=== PATIENT | female | born 1970 | race Caucasian/White ===

== ENCOUNTER 2018-01-22 08:17 | Day surgery (SDC) | payer OTHER, SELFPAY ==
--- NOTE | 2018-01-22 06:53 | ROE_ITS ---
Date of service: 01/22/18 Operative Note DATE OF PROCEDURE: 01/22/18 PRE-OP DIAGNOSIS: Dysphagia POST-OP DIAGNOSIS: other (Duodenitis, gastritis and esophagitis) PROCEDURE: EGD With Biopsies SURGEON: Ellen Lorenzo ANESTHESIA: MAC (Kait Saeed, LOPEZ) ESTIMATED BLOOD LOSS: 5 PATHOLOGY: other (Duodenal biopsies, gastric bx and GE junction bx) COMPLICATIONS: None Patient was transported to: same day Patient's condition: stable Indications: Mrs. Arce is a 47 year old female with dysphagia and some intermittent heart burn. She has never had an Upper endoscopy. Risks, benefits and complications have been reviewed. Complications include but are not limited to bleeding, pain, perforation, sore throat, aspiration, and adverse reaction to the medications. Questions were entertained and answered to their satisfaction and they wished to proceed. No guarantees were given or implied. Findings: Severe duodenitis and gastritis. Moderate esophagitis Procedure Description: After Informed consent was obtained the patient was taken to the procedure room and placed in a supine position. Monitors were applied and a time out was done. The patients name, date of , procedure type, allergies to medications and metal in her body were all reviewed. A bite block was placed and she was sedated. Once sedated and comfortable the Gastroscope was inserted and advanced through the oropharynx which was grossly normal into the esophagus. The proximal and mid-esophagus were normal. The distal esophagus showed inflammation consistent with reflux. The scope was advanced into the stomach and through the pylorus into the duodenum. The duodenum showed severe duodenitis in the 1st and second portion. The sphincter of oddi was identified and was normal. Biopsies of the duodenum were taken. The scope was retracted back into the stomach. There was moderate inflammation noted. Biopsies were done of the antrum to rule out H. pylori infection. The scope was retroflexed. The cardia and fundus were normal. The scope was straigthened and retracted into the esophagus. The Z-line was irregular. The GE junction was at 35 cm. Biopsies were done to rule out Granados's. The scope was removed and the patient was woken up and taken back to [facility] in stable condition. Follow up: I will have the patient follow up in 2-3 weeks. I will increase her PPI to BID and add Carafate.
--- NOTE | 2018-01-22 06:56 | PDOC.DSDIS_ITS ---
Discharge Plan Disposition Patient Disposition: HOME Discharge Details Reason For Visit: DYSPHAGIA Attending Provider: Ellen Lorenzo Primary Care Provider: Donita Barrow Home Meds and New Rx's Prescriptions: New sucralfate 1 gram tablet 1 gm PO QID Qty: 56 RF: 0 Continue clobetasol 15 GM ointment 15 gm Topical PRN Qty: 2 RF: 1 citalopram 20 MG tablet 20 mg PO HS RF: 0 lisinopril 10 MG tablet 10 mg PO HS RF: 0 fluticasone 16 GM spray,suspension 2 spry NS BID PRNRF: 0 Changed omeprazole 40 mg capsule,delayed release(DR/EC) 40 mg PO BID Qty: 60 RF: 0 Discharge Instructions Instructions: Upper Endoscopy (DC), Duodenitis (DC), Gastritis (DC), Diet for Stomach Ulcers and Gastritis (GEN), Esophagitis (DC) Additional Instructions: Findings: Inflammation of the small bowel, stomach and esophagus Follow up: 2-3 weeks New Medications: Increase Omeprazole to 2 x a day carafate 1gm, take 1 tab 30 minutes before meals and before bedtime Please call if you develop: fevers >101.5 Nausea or Vomiting Abdominal pain that is not transient DAY SURGERY UNIT POST COLONOSCOPY INSTRUCTIONS 1. Because there will be medication in your system for the next 24 hours, you may feel a little sleepy. Your coordination will be affected. Therefore: a. Do not drive or operate dangerous equipment for 24 hours. b. Do not drink alcohol beverages for 24 hours (not even beer). c. Plan to go home and rest for the day. 2. Generally there are no restrictions on your activity after a day or so has gone by, but you may feel a bit fatigued for a few days. 3 After you arrive home you may have a light meal and return to a normal diet as you can tolerate it without feeling sick to your stomach. 4. After surgery, you may feel pain or discomfort. This should be only transient , but if it persists please contact your doctor. 5. If there are any questions regarding the findings of your procedure, please feel free to contact your doctor. 6. If you are unable to contact your doctor with a problem, contact the hospital at [phone]. 7. Continue all your regular medications unless directed otherwise. I understand the above instructions and have no questions. Signature of Patient or Responsible Adult Escort Date/Time Name of Responsible Adult Escort Signature of Nurse Date/Time Activity:: Activity as Tolerated Diet:: low acid Discharge Orders Discharge Orders: Discharge Order (Routine); Ordered 01/22/18 Ordered By: Ellen Lorenzo DS: Diagnosis Discharge Diagnosis (1) Esophagitis determined by biopsy: Status: Acute (2) Gastritis and duodenitis: Status: Acute
[2018-01-22 08:32] VITALS: BP 158/71; PULSE 58; RESP 16; TEMP 35.7; O2SAT 97
[2018-01-22] MEDS: Lactated Ringers 1,000 ML 80 ML IV (09:00)
--- NOTE | 2018-01-22 10:05 | STOM_PTH ---
PATIENT: Loretta Arce LOC: [facility] U#:[id number] AGE/SX: 47/F ROOM: RE01/22/[address]: Ellen Lorenzo MD : 1970 BED: DIS: 01/22/2018 SPEC #: [id number] RECD: 01/22/18 12:51 STATUS: NITIN RETanja #: [id number] ROXIE: 01/22/18 10:[address]: Ellen Lorenzo DEPT: Surgical Specimen RECD BY: Caity David ENTERED: 01/22/18 12:52 SP TYPE: STOMACH OTHR DR: Donita Barrow APRN Tissues: 1 - BIOPSY BOWEL 2 - STOMACH BIOPSY 3 - ESOPHAGUS BIOPSY Procedures: GROSS AND MICRO LEVEL 4 IMMUNOPEROXIDASE STAIN Comments: [id number]
[2018-01-22 10:50] VITALS: BP 146/75; PULSE 59; RESP 18; TEMP 36.6; O2SAT 96
== END 2018-01-22 11:32 | disposition home or self-care (01) ==
LOC: SUR 08:17
PROVIDERS: PCP Nurse Practitioner Family; Visit Provider Surgery
PROC: 0DJ68ZZ Inspection of Stomach, Via Natural or Artificial Opening Endoscopic (ICD-10-PCS; CPT 43235; principal; 2018-01-22 10:15)
DX: R13.10 Dysphagia, unspecified (principal); K29.80 Duodenitis without bleeding; K31.89 Other diseases of stomach and duodenum; K29.60 Other gastritis without bleeding; K20.9 Esophagitis, unspecified
CPT/HCPCS: 43239; 88305; 88361

== ENCOUNTER 2019-10-20 09:01 | Outpatient (CLI) | payer OTHER, SELFPAY ==
--- NOTE | 2019-10-20 15:15 | DI.MAMMO_ITS ---
EXAM: MG MAMMO SCREENING CLINICAL HISTORY: screening, Z12.39 TECHNIQUE: Bilateral full field digital CC and MLO mammographic images were obtained with 3D tomosyn thesis and utilizing computer aided detection (CAD). COMPARISON: Available for comparison. FINDINGS: Masses/Architectural Distortion: None seen. Microcalcifications: No suspicious pleomorphic-type are seen. Skin Thickening/Nipple Retraction: None. IMPRESSION: 1. No significant interval change with no specific features of malignancy noted. 2. Unless there is more urgent need, screening mammography is recommended, as per [employer] guidelines. BI-RADS Category 1 - Negative Breast Density - Category B - Scattered areas of fibroglandular density A negative radiographic report should not delay biopsy if a dominant or clinically suspicious mass is present. Up to ten percent of cancers are not identified on mammography. A negative report may reinforce clinical impression. Adenosis and dense breasts may obscure an underlying neoplasm. False positive reports average 6 to 10%. Patient will receive a letter notifying them of these results.
== END 2019-10-20 09:21 ==
PROVIDERS: PCP Nurse Practitioner; Visit Provider Nurse Practitioner
DX: Z12.31 Encounter for screening mammogram for malignant neoplasm of breast (principal)
CPT/HCPCS: 77063; 77067

== ENCOUNTER → 2021-12-30 00:35 | Outpatient (CLI) | payer OTHER, SELFPAY ==
--- OUTSIDE RECORDS SUMMARY | 2021-12-30 00:50 | XMS_ITS | Encounter Summary ---
:1970 Author Organization [facility] Address [address] [place] [address] Care Team Providers Name Role Phone Unavailable Primary Care Provider Unavailable Encounter Details Date Type Department Care Team Description 01/29/2006 Results Only [facility] - Dianna Briones od, CHECK CLERK [place] [id number] [place] [phone] (Wo rk) Social History Tobacco Use Types Packs/Day Years Used Date Never Assessed Sex Assigned at Date Recorded Not on file documented as of this encounter Plan of Treatment Not on filedocumented as of this encounter Procedures Procedure Name Priority Date/Time Associated Diagnosis Comme nts CYTOPATHOLOGY Routine 01/29/2006 0:00 EDT Results for this procedure are i n the results section . documented in this encounter Results CYTOPATHOLOGY (01/29/2006 0:00 EDT) Pathology Report: CYTOPATHOLOGY REPORT [facility] Reports generated via electronic interface contain constantine ginal data; however they are lacking the format of the original re port. Caution should be taken when reading/interpreting unfo rmatted reports. Name: ? LORETTA BARAHONA ? Accession #: ? [id number] : ? 1970 (Age: 35) ??F ?Collect Date: ? 10/0 12/2005 Location: ? [facility] ? Receive Date : ? 01/30/2006 Provider: ?DIANNA PENDLETON CHECK CLERK Copy to: ? Specimen/Source: ? ThinPrep Pap Test, Cervix/Endocervix, processed on [employer] ThinPrep Imaging System, with manual evaluation Last Menstrual Period: ? 01/15/06 Other: ? HPVA - HPV testing requested if ASC-US on the current ThinPrep Pap test. ? SPECIMEN ADEQUACY ? Satisfactory for Evaluation - transformation zone component present GENERAL CATEGORIZATION ? Negative for Intraepithelial Lesion or Malignan cy ? Document reviewed and electronically signed by: ? Altagracia Isabel, SCT(ASCP) ? Report Date: ??02/01/2006 15:22 End of Report Specimen Performing Organization Address City/State/ZIP Code Phon e Number [facility] [address] [place] [address] SERVICES [facility] [address] [place] [address] documented in this encounter Visit Diagnoses Not on filedocumented in this encounter
--- OUTSIDE RECORDS SUMMARY | 2021-12-30 00:50 | XMS_ITS | Encounter Summary ---
:1970 Author Organization [facility] Address [address] [place] [address] Care Team Providers Name Role Phone Unavailable Primary Care Provider Unavailable Encounter Details Date Type Department Care Team Description 10/01/2008 Orders Only [facility] Eliceo Love, INSURANCE SALES ASSOCIATE Laboratory Services - [address] [place], [place] [address] [facility] [address] [place] [address] [phone] Social History Tobacco Use Types Packs/Day Years Used Date Never Assessed Sex Assigned at Date Recorded Not on file documented as of this encounter Plan of Treatment Not on filedocumented as of this encounter Procedures Procedure Name Priority Date/Time Associated Diagnosis Comme [facility] CYTOPATHOLOGY Routine 10/01/2008 0:00 EDT Results for this procedure are i n the results section . documented in this encounter Results CYTOPATHOLOGY (10/01/2008 0:00 EDT) Pathology Report: CYTOPATHOLOGY REPORT ? [facility] Reports generated via electr onic interface contain original data; ? however they are lacking the format of the original report. ? Caution should be taken when reading/interpreting unformatted reports. ? Name: ? LORETTA BARAHONA ? Accession #: ? [id number] ? : ? 1970 (Age: 38) ??F ?Collect Date: ? 10/01/2008 ? Location: ? [facility] ? Receive Date: ? 10/02/2008 ? Provider: ?NEETA GALANG OOD INSURANCE SALES ASSOCIATE ? Copy to: ? Specimen/Source: ? Pap Test, Cervix/Endocervix, ThinPrep Imaging System ? with manual evaluation ? Last Menstrual Period: ? 6/6/09 ? Other: ? HPVA - HPV testing requested if ASC-US on the current ThinPrep Pap test. ? SPECIMEN ADEQUACY ? Satisfactory for Eval uation ? - transformation zone compon ent present ? GENERAL CATEGORIZATION ? Negative for Intraepi thelial Lesion or Malignancy ? INTERPRETATION ? Shift in eloy presen t suggestive of bacterial vaginosis. ? Document reviewed and electr onically signed by: ? Mohsen Rangel, CT( CP) ? Report Date: ??06/17/ 2009 14:46 ? End of Report ? Specimen Performing Organization Address City/State/ZIP Code Phon e Number [facility] [address] [place] [address] SERVICES [facility] [address] [place] [address] documented in this encounter Visit Diagnoses Not on filedocumented in this encounter
--- OUTSIDE RECORDS SUMMARY | 2021-12-30 00:50 | XMS_ITS | Encounter Summary ---
:1970 Author Organization [facility] Address [address] [place] [address] Care Team Providers Name Role Phone Unknown, Provider Primary Care Provider Encounter Details Date Type Department Care Team Description 01/22/2018 Hospital Encounter [facility]- Shayy Unknown, Provider, [facility] [address] [facility] [phone] [place] [address] (Work) [phone] Social History Tobacco Use Types Packs/Day Years Used Date Never Assessed Sex Assigned at Date Recorded Not on file documented as of this encounter Discharge Disposition Disposition Code Departure Means Destination Home or Self Shelter documented in this encounter Plan of Treatment Not on filedocumented as of this encounter Visit Diagnoses Not on filedocumented in this encounter Care Teams Fire Control Officer Relationship Specialty Start Date End Date Unknown, Provider, PCP - General 03/02/15 01/22/18 documented as of this encounter
--- OUTSIDE RECORDS SUMMARY | 2021-12-30 00:50 | XMS_ITS | Encounter Summary ---
:1970 Author Organization [facility] Address [address] [place] [address] Care Team Providers Name Role Phone Unavailable Primary Care Provider Unavailable Encounter Details Date Type Department Care Team Description 08/24/2000 Results Only [facility] - Dianna Briones od, MAINFRAME ANALYST [place] [id number] [address] [place] [phone] (Wo rk) Social History Tobacco Use Types Packs/Day Years Used Date Never Assessed Sex Assigned at Date Recorded Not on file documented as of this encounter Plan of Treatment Not on filedocumented as of this encounter Procedures Procedure Name Priority Date/Time Associated Diagnosis Comme nts CYTOPATHOLOGY Routine 08/24/2000 0:00 EDT Results for this procedure are i n the results section . documented in this encounter Results CYTOPATHOLOGY (08/24/2000 0:00 EDT) Pathology Report: CYTOPATHOLOGY REPORT [facility] Reports generated via electronic interface contain constantine ginal data; however they are lacking the format of the original re port. Caution should be taken when reading/interpreting unfo rmatted reports. Name: ? LORETTA BARAHONA ? Accession #: ? [id number] : ? 1970 (Age: 30) ??F ?Collect Date: ? 0507/2000 Location: ? [facility] ? Receive Date : ? 08/27/2000 Provider: ?DIANNA PENDLETON MAINFRAME ANALYST Copy to: ? Specimen/Source: ?ThinPrep Pap Test, Cervix/ Endocervix Last Menstrual Period: ? Hormonal/Contraceptive Status: ? Depo-Provera Previous Gynecologic Pathology: ? ASC-US: ? LSIL 1994, 1995 & 1996 Benign cellular changes: & Treatment History: ? Colposcopy: 1996 Other: ? Additional clinical information: Pap wnl. ? SPECIMEN ADEQUACY ? Satisfactory for evaluation. GENERAL CATEGORIZATION ? Benign Cellular Changes DESCRIPTIVE DIAGNOSIS ? Predominance of coccobacilli present consistent with shift in vaginal eloy. ? Document reviewed and electronically signed by: ? Sarita Wells, ??SCT(ASCP) ? Report Date: ??08/28/2000 12:29 End of Report Specimen Performing Organization Address City/State/ZIP Code Phon e Number [facility] [address] [place] [address] SERVICES [facility] [address] [place] [address] documented in this encounter Visit Diagnoses Not on filedocumented in this encounter
--- OUTSIDE RECORDS SUMMARY | 2021-12-30 00:50 | XMS_ITS | Encounter Summary ---
:[address] [facility] Address [address] [place] [address] Care Team Providers Name Role Phone Unknown, Provider Primary Care Provider Encounter Details Date Type Department Care Team Description 03/13/2017 Results Only [facility]- Dianna Mae, [facility] [phone] [facility] [place] [address] (Wo rk) Social History Tobacco Use Types Packs/Day Years Used Date Never Assessed Sex Assigned at Date Recorded Not on file documented as of this encounter Plan of Treatment Not on filedocumented as of this encounter Procedures Procedure Name Priority Date/Time Associated Diagnosis Comme nts PAP TEST- RESULT Routine 03/13/2017 0:00 EST Resu lts for this ONLY procedure are i n the results section. documented in this encounter Results PAP TEST- RESULT ONLY (03/13/2017 0:00 EST) Pathology Report: CYTOPATHOLOGY REPORT [facility] Reports generated via electronic interface contain constantine ginal data; SERVICES however they are lacking the format of the original re port. Caution should be taken when reading/interpreting unfo rmatted reports. Name: ? LORETTA BARAHONA ? Accession #: ? [id number] ? : ? 1970 (Age: 46 ) ??F ?Collect Da te: ? 03/13/2017 ? Location: ? [facility] ? Receive Date: ? 017 ? Provider: DIANNA PENDLETON ELECTRICAL ASSEMBLY TECHNICIAN Copy to: KERMIT VALENZUELA ELECTRICAL ASSEMBLY TECHNICIAN ? Final Report SPECIMEN ADEQUACY ? Satisfactory for Evaluation - transformation zone component present GENERAL CATEGORIZATION ? Negative for Intraepithelial Lesion or Malignan cy INTERPRETATION ? Shift in eloy present suggestive of bacterial vaginosis. Hormonal/Contraceptive status: Intrauterine device Specimen/Source: ??Pap Test, Cervix, ThinPrep Imaging System with manual evaluation Document reviewed and electronically signed by: ? Rosalind Salomon, CT(ASCP) ? Report ??Date: 03/27/2017 08:58 HPV with Pap Test ? Date Ordered: ? 03/27/2017 ? Status: ?? Signed Out ?Date Complete: ? 03/28/2017 ? By: ??Sy stem Interface ? Date Reported: ? 03/28/2017 ? Interpretation RESULT: Negative for HPV. No E6 or E7 mRNA is detected from HPV types 16,18,31,3 3,35, 39,45,51,52,56,58,59,66, and 68 by internet sales consultant media french amplification. Comments Document reviewed and electronically signed by: ? System Interface ? Report date: 03/28/2017 By the signature above, the attending physician certif ies that he/she has personally conducted a gross and/or microscopic examin ation of the described specimens and rendered or confirmed the above diagnosi s. End of Report Specimen Performing Organization Address City/State/ZIP Code Phon e Number [facility] [address] [place] [id number] SERVICES documented in this encounter Visit Diagnoses Not on filedocumented in this encounter Care Teams Commissioner Of Internal Revenue Relationship Specialty Start Date End Date Unknown, Provider, PCP - General 03/02/15 01/22/18 documented as of this encounter
--- OUTSIDE RECORDS SUMMARY | 2021-12-30 00:50 | XMS_ITS | Encounter Summary ---
:[address] [facility] Address [address] [place] [address] Care Team Providers Name Role Phone Unavailable Primary Care Provider Unavailable Encounter Details Date Type Department Care Team Description 02/18/2007 Results Only [facility] - Dianna Briones od, ROPE CLEANER [place] [address] [place] [phone] (Wo rk) Social History Tobacco Use Types Packs/Day Years Used Date Never Assessed Sex Assigned at Date Recorded Not on file documented as of this encounter Plan of Treatment Not on filedocumented as of this encounter Procedures Procedure Name Priority Date/Time Associated Diagnosis Comme nts CYTOPATHOLOGY Routine 02/18/2007 0:00 EDT Results for this procedure are i n the results section . documented in this encounter Results CYTOPATHOLOGY (02/18/2007 0:00 EDT) Pathology Report: CYTOPATHOLOGY REPORT [facility] Reports generated via electronic interface contain constantine ginal data; however they are lacking the format of the original re port. Caution should be taken when reading/interpreting unfo rmatted reports. Name: ? LORETTA BARAHONA ? Accession #: ? [id number] : ? 1970 (Age: 36) ??F ?Collect Date: ? 01/22 Location: ? [facility] ? Receive Date : ? 02/19/2007 Provider: ?DIANNA PENDLETON ROPE CLEANER Copy to: ? Specimen/Source: ? ThinPrep Pap Test, Cervix/Endocervix, processed on [employer] ThinPrep Imaging System, with manual evaluation Last Menstrual Period: ? 01/26/07 Other: ? HPVA - HPV testing requested if ASC-US on the current ThinPrep Pap test. ? SPECIMEN ADEQUACY ? Satisfactory for Evaluation - transformation zone component present GENERAL CATEGORIZATION ? Negative for Intraepithelial Lesion or Malignan cy INTERPRETATION ? Shift in eloy present suggestive of bacterial vaginosis. ? Document reviewed and electronically signed by: ? Altagracia Isabel, SCT(ASCP) ? Report Date: ??02/22/2007 16:17 End of Report Specimen Performing Organization Address City/State/ZIP Code Phon e Number [facility] [address] [place] [address] SERVICES [facility] [address] [place] [address] documented in this encounter Visit Diagnoses Not on filedocumented in this encounter
--- OUTSIDE RECORDS SUMMARY | 2021-12-30 00:50 | XMS_ITS | Encounter Summary ---
:1970 Author Organization [facility] Address [address] [place] [address] Care Team Providers Name Role Phone Unavailable Primary Care Provider Unavailable Encounter Details Date Type Department Care Team Description 03/25/2013 Results Only [facility] Eliceo Love, [facility] Laboratory Services - [address] [place], [place] [address] [facility] [address] [place] [address] [phone] Social History Tobacco Use Types Packs/Day Years Used Date Never Assessed Sex Assigned at Date Recorded Not on file documented as of this encounter Plan of Treatment Not on filedocumented as of this encounter Procedures Procedure Name Priority Date/Time Associated Diagnosis Comme nts PAP TEST- RESULT Routine 03/25/2013 0:00 EST Resu lts for this ONLY procedure are i n the results section. documented in this encounter Results PAP TEST- RESULT ONLY (03/25/2013 0:00 EST) Pathology Report: CYTOPATHOLOGY REPORT [facility] Reports generated via electronic interface contain constantine ginal data; however they are lacking the format of the original re port. Caution should be taken when reading/interpreting unfo rmatted reports. Name: ? LORETTA BARAHONA ? Accession #: ? [id number] ? : ? 1970 (Age: 42) ??F ?Collect Da te: ? 03/25/2013 ? Location: ? [facility] ? Receive Date: ? 013 ? Provider: NEETA LOVE TRACK SWEEPER Copy to: VIVIANE SIBLEY PILOT PLANT SUPERVISOR ? Final Report SPECIMEN ADEQUACY ? Satisfactory for Evaluation - transformation zone component present GENERAL CATEGORIZATION ? Negative for Intraepithelial Lesion or Malignan cy INTERPRETATION ? Shift in eloy present suggestive of bacterial vaginosis. Hormonal/Contraceptive status: Yes: MIRENA Specimen/Source: ??Pap Test, Cervix/Endocervix, ThinPr ep Imaging System with manual evaluation Document reviewed and electronically signed by: ? QUAN Maciel(ASCP) ? Report ??Date: 03/28/2013 13:11 HPV with Pap Test ? Date Ordered: ? 03/28/2013 ? Status: ?? Signed Out ?Date Complete: ? 04/01/2013 ? By: ??S ystem Interface ? Date Reported: ? 04/01/2013 ? Interpretation RESULT: Negative for HPV. No E6 or E7 mRNA is detected from HPV types 16,18,31,3 3,35, 39,45,51,52,56,58,59,66, and 68 by fruit and vegetable factory worker media french amplification. Comments Document reviewed and electronically signed by: ? System Interface ? Report date: 04/01/2013 By the signature above, the attending physician certif ies that he/she has personally conducted a gross and/or microscopic examin ation of the described specimens and rendered or confirmed the above diagnosi s. End of Report Specimen Performing Organization Address City/State/ZIP Code Phon e Number [facility] [address] [place] [phone] [place] [address] [facility] [address] [place] [address] documented in this encounter Visit Diagnoses Not on filedocumented in this encounter
--- OUTSIDE RECORDS SUMMARY | 2021-12-30 00:50 | XMS_ITS | Encounter Summary ---
:[address] [facility] Address [address] [place] [address] Care Team Providers Name Role Phone Unknown, Provider Primary Care Provider Encounter Details Date Type Department Care Team Description 01/22/2018 Results Only [facility]- Luis Manuel Mcdonald, [address] [place] [address] [address] [place], [place] [phone] (Wo rk) Social History Tobacco Use Types Packs/Day Years Used Date Never Assessed Sex Assigned at Date Recorded Not on file documented as of this encounter Plan of Treatment Not on filedocumented as of this encounter Procedures Procedure Name Priority Date/Time Associated Diagnosis Comme nts SURGICAL PATHOLOGY Routine 01/22/2018 16:40 Resul ts for this EDT procedure are i n the results section. documented in this encounter Results SURGICAL PATHOLOGY (01/22/2018 16:40 EDT) Pathology Report: SURGICAL PATHOLOGY REPORT [facility] Reports generated via electronic interface contain constantine ginal data; SERVICES however they are lacking the format of the original re port. Caution should be taken when reading/interpreting unfo rmatted reports. Name: ? LORETTA BARAHONA ? Accession #: ? [id number] ? : ? 1970 (Age: 47 ) ??F ?Collect Date: ? 01/22/2018 ? Location: ? [facility] ? Receive Date: ? 01/23/20 18 ? Provider: LUIS MANUEL SUÁREZ MD Copy to: KERMIT VALENZUELA SCISSORS SHARPENER ? Addendum ? Date Ordered: ? 01/28/2018 ? Status: Sig michelle Out ? Date Complete: ? 01/28/2018 ? By: Yaneli Whitehead ? Date Reported: ? 01/28/2018 ? Addendum Comment This addendum is being issued to report the results of an Helicobacter (H.) pylori stain performed on specimen B (see results belo w). ??Immunoperoxidase staining was performed on this case to further evaluat e for H. pylori. ? ANTIBODY(CLONE)(BLOCK):RESULT H. pylori (Rabbit Monoclonal (SP48), [place]) (B1): ?? Negative (Dr. Ignacio)/mms ? NOTE: ??One or more of the reagents used in imm unoperoxidase testing in this case may not have been cleared or approved by the U.S. Food and Drug Administration (FDA). ??The FDA has determined that such clearance or approval is not necessary. ??These tests are used for clinical purposes. ??They should not be regarded as investigational or for research. ??These r eagents' performance characteristics have been de termined by the [facility] and/or by the referring jenn minor. ??The positive and negative controls worked appropriately. ??If immunope roxidase staining has been performed on alcohol fixed cytology specimens, which has not been fully validated , the assays should be interpreted with caution and correlated with clinical data. ??This laboratory is certified under the Clinical Laboratory Improvement Amendments of 1988 (CLIA-88) as qualified to perform high complexity clinical labor atory testing. ?? Document reviewed and electronically signed by: ? HEATHER IGNACIO MD ? Report date: 01/28/2018 By the signature above, the attending physician certif ies that he/she has personally conducted a gross and/or microscopic examin ation of the described specimens and rendered or confirmed the above diagnosi s. Final Report Final Pathologic Diagnosis: A. DUODENUM, BIOPSY: - Peptic duodenitis. B. STOMACH, ANTRUM, BIOPSY: - Reactive (chemical) gastropathy with focal acute inf lammation. - No evidence of Helicobacter pylori-like organi sms on routine H&E stain. See comment. C. ESOPHAGUS, GASTROESOPHAGEAL JUNCTION, BIOPSY: - Squamocolumnar junctional mucosa with chronic inflam mation and reactive change. - Increased intraepithelial eosinophils (up to approximately 35 per high-power field). See comment. - No intestinal metaplasia or dysplasia. ?? Comment: Specimen B: ??Given the foca l acute inflammation in the stomach biopsy and peptic duodenitis in specimen A, an immunostain for Helicobacter pylori was ordered and the results will be issued in a supplemental report. Specimen C: ??The presence of increased intraepithelia l eosinophils in the gastroesophageal biopsy may simply represent changes a ssociated with reflux esophagitis in the appropriate clinical and endoscopic setting. However, eosinophilic esophagitis is another diagnostic conside ration based on the microscopic findings alone. If there is remaining clinical uncertainty between these entities, additional separately submitted biopsi es of the proximal and distal esophagus may be considered, only as clinically indicated. (Dr. Ignacio)/jleslie ?? Dr. Ignacio 01/24/2018 7:48 PM ? Gross Description: A. ?Received in formalin labelled with proper p atient identification (initials H, K) and 1. Duodenum biopsy is a higgins-pink tissue (0.4 x 0.3 x 0.2 cm). Submitted in toto in A1. B. ?Received in formalin labelled with proper p atient identification (initials H, K) and 2. Marivel arden antrum bxs are four higgins-pink tissues (0.2 x 0.2 x 0.1 cm to 0.7 x 0.2 x 0.1 cm). Submitted in toto in B1. C. ?Received in formalin labelled with proper p atient identification (initials H, K) and 3. GE j unction are three higgins-pink tissues (0.2 x 0.1 x 0.1 cm to 0.4 x 0.3 x 0.2 cm). Submitted in toto in C1. KHOA Levine ([facility]) 01/22/2018 5:51 PM ? Clinical History: Dysphagia; B. ??R/O H. pylori; C. ??R/O Granados's ? Specimens Received: A: Small Intestine biopsy B: Stomach, biopsy C: Esophagus, biopsy Document reviewed and electronically signed by: ? HEATHER IGNACIO MD ? Report ??Date: 01/24/2018 19:49 By the signature above, the attending physician certif ies that he/she has personally conducted a gross and/or microscopic examin ation of the described specimens and rendered or confirmed the above diagnosi s. End of Report Specimen Performing Organization Address City/State/ZIP Code Phon e Number [facility] [address] [place] [id number] SERVICES documented in this encounter Visit Diagnoses Not on filedocumented in this encounter Care Teams Gear Setter Relationship Specialty Start Date End Date Unknown, Provider, PCP - General 03/02/15 01/22/18 documented as of this encounter
--- OUTSIDE RECORDS SUMMARY | 2021-12-30 00:50 | XMS_ITS | Encounter Summary ---
:1970 Author Organization [facility] Address [address] [place] [address] Care Team Providers Name Role Phone Unavailable Primary Care Provider Unavailable Encounter Details Date Type Department Care Team Description 09/07/2003 Results Only [facility] - Celso Edge CNM conversion [address] [place] [address] [place], [place] [id number] [phone] Social History Tobacco Use Types Packs/Day Years Used Date Never Assessed Sex Assigned at Date Recorded Not on file documented as of this encounter Plan of Treatment Not on filedocumented as of this encounter Procedures Procedure Name Priority Date/Time Associated Diagnosis Comme nts CYTOPATHOLOGY Routine 09/07/2003 0:00 EDT Results for this procedure are i n the results section . documented in this encounter Results CYTOPATHOLOGY (09/07/2003 0:00 EDT) Pathology Report: CYTOPATHOLOGY REPORT [facility] Reports generated via electronic interface contain constantine ginal data; however they are lacking the format of the original re port. Caution should be taken when reading/interpreting unfo rmatted reports. Name: ? LORETTA BARAHONA ? Accession #: ? [id number] : ? 1970 (Age: 33) ??F ?Collect Date: ? 08/21 Location: ? [facility] ? Receive Date : ? 09/09/2003 Provider: ?CELSO STOLL CNM Copy to: ? Specimen/Source: ?ThinPrep Pap Test, Cervix/ Endocervix Last Menstrual Period: ? 11/01/2002 Menstrual/ Status: ? Post Other: ? HPVA - HPV testing requested if ASC-US on the current ThinPrep Pap test. ? SPECIMEN ADEQUACY ? Satisfactory for Evaluation - transformation zone component present GENERAL CATEGORIZATION ? Negative for Intraepithelial Lesion or Malignan cy ? Document reviewed and electronically signed by: ? QUAN Pena(ASCP) ? Report Date: ??09/14/2003 15:49 End of Report Specimen Performing Organization Address City/State/ZIP Code Phon e Number [facility] [address] [place] [address] SERVICES [facility] [address] [place] [address] documented in this encounter Visit Diagnoses Not on filedocumented in this encounter
--- OUTSIDE RECORDS SUMMARY | 2021-12-30 00:50 | XMS_ITS | Encounter Summary ---
:[address] [facility] Address [address] [place] [address] Care Team Providers Name Role Phone Unavailable Primary Care Provider Unavailable Encounter Details Date Type Department Care Team Description 09/02/1999 Results Only [facility] - Dianna Briones od, OIL SALES AND SERVICE REP [facility] [address] [place] [phone] (Wo rk) Social History Tobacco Use Types Packs/Day Years Used Date Never Assessed Sex Assigned at Date Recorded Not on file documented as of this encounter Plan of Treatment Not on filedocumented as of this encounter Procedures Procedure Name Priority Date/Time Associated Diagnosis Comme nts CYTOPATHOLOGY Routine 09/02/1999 7:38 EDT Results for this procedure are i n the results section . documented in this encounter Results CYTOPATHOLOGY (09/02/1999 7:38 EDT) Pathology Report: CYTOPATHOLOGY REPORT [facility] Reports generated via electronic interface contain constantine ginal data; however they are lacking the format of the original re port. Caution should be taken when reading/interpreting unfo rmatted reports. Name: ? LORETTA BARAHONA ? Accession #: ? [id number] : ? 1970 (Age: 29) ??F ?Collect Date: ? 08/21 Location: ?Receive Date: ? 09/02/1999 Provider: ?DIANNA PENDLETON OIL SALES AND SERVICE REP Copy to: ?DIANNA PENDLETON OIL SALES AND SERVICE REP ? Specimen/Source: ?Director Data Processing ThinPrep Last Menstrual Period: ? GYNECOLOGIC ??CYTOPATHOLOG Y ??REPORT Name: LORETTA STORY ? [facility] : 1970 ?? 29Y F ?Client ID: [id number] SS#: ? Clinician: KEERTHI MARTINEZP, DIANNA ?? Location: [facility] ??Copy to: ?? Specimen: ?Director Data Processing ThinPrep ? Source: Cervix/Endocervix ?Collected: 08/31/99 ? Received: 09/02/1999 ?LMP: 1997 ? Hormone Therapy: No ? : No ? Radiation Therapy: No ?? Post : No ?Chemotherapy: No ?IUD: No ? Prev Abnormal Pap: Yes ?? Clinical Hx: ASCUS ? LGSIL 1994, 1995, and 1996. Colpo 1996. WNL ? Benign Cellular Change s. Depo Provera ?(Blank florentino indicate information not provided on requisition) SPECIMEN ADEQUACY: ? Satisfactory But Limited By ? Absence Of A Transformation Zone Component ?? GENERAL CATEGORIZATION: ? BENIGN CELLULAR CHANGES ?? DESCRIPTIVE DIAGNOSIS: ? Predominance Of Coccobacilli Present Consistent With A Shift In ? Vaginal Jessica ? Reviewed And Electronically Signed By: ? Kait kirby, CT(ASCP) ? Chanda Hogan, CT(ASCP) ? Report Date : ?? 09/07/1999 [facility] Archived Tests - Final Diagnosis Text Field: Clinical History : Depo-Prov era ;ASCUS ? LGSIL 1994, 1995, and 1996. Colpo 1996. WNL Benign Cellular Changes. ? Document reviewed and electronically signed by: ? Conversion ? Report Date: ??09/07/1999 00:00 End of Report Specimen Performing Organization Address City/State/ZIP Code Phon e Number [facility] [address] [place] [address] SERVICES [facility] [address] [place] [address] documented in this encounter Visit Diagnoses Not on filedocumented in this encounter
--- OUTSIDE RECORDS SUMMARY | 2021-12-30 00:50 | XMS_ITS | Encounter Summary ---
:1970 Author Organization [facility] Address [address] [place] [address] Care Team Providers Name Role Phone Unavailable Primary Care Provider Unavailable Encounter Details Date Type Department Care Team Description 08/27/2001 Results Only [facility] - Dianna Briones od, TECHNICAL PROGRAM MANAGER [facility] [address] [place] [phone] (Wo rk) Social History Tobacco Use Types Packs/Day Years Used Date Never Assessed Sex Assigned at Date Recorded Not on file documented as of this encounter Plan of Treatment Not on filedocumented as of this encounter Procedures Procedure Name Priority Date/Time Associated Diagnosis Comme nts CYTOPATHOLOGY Routine 08/27/2001 0:00 EDT Results for this procedure are i n the results section . documented in this encounter Results CYTOPATHOLOGY (08/27/2001 0:00 EDT) Pathology Report: CYTOPATHOLOGY REPORT [facility] Reports generated via electronic interface contain constantine ginal data; however they are lacking the format of the original re port. Caution should be taken when reading/interpreting unfo rmatted reports. Name: ? LORETTA BARAHONA ? Accession #: ? [id number] : ? 1970 (Age: 31) ??F ?Collect Date: ? 0510/2001 Location: ? [facility] ? Receive Date : ? 08/28/2001 Provider: ?DIANNA PENDLETON TECHNICAL PROGRAM MANAGER Copy to: ? Specimen/Source: ?ThinPrep Pap Test, Cervix/ Endocervix Last Menstrual Period: ? Previous Gynecologic Pathology: ? ASC-US: ? LSIL 1994, 1995, 1996 Benign cellular changes: , , 08/21 Treatment History: ? Colposcopy: 1996, Pap of WNL ? SPECIMEN ADEQUACY ? Satisfactory for Evaluation - transformation zone component present GENERAL CATEGORIZATION ? Negative for Intraepithelial Lesion or Malignan cy INTERPRETATION ? Shift in eloy present suggestive of bacterial vaginosis. ? Document reviewed and electronically signed by: ? QUAN Crump(ASCP) ? Report Date: ??08/30/2001 13:46 End of Report Specimen Performing Organization Address City/State/ZIP Code Phon e Number [facility] [address] [place] [address] SERVICES [facility] [address] [place] [address] documented in this encounter Visit Diagnoses Not on filedocumented in this encounter
--- NOTE | 2021-12-30 08:05 | DI.MAMMO_ITS ---
Exam(s) MAMMO SCREENING EXAM: MAMMO SCREENING CLINICAL HISTORY: screening,z12.39 TECHNIQUE: Bilateral full field digital CC and MLO mammographic images were obtained with 3D tomosyn thesis and utilizing computer aided detection (CAD). COMPARISON: Available for comparison. FINDINGS: Masses/Architectural Distortion: None seen. Microcalcifications: No suspicious pleomorphic-type are seen. Skin Thickening/Nipple Retraction: None. IMPRESSION: 1. No significant interval change with no specific features of malignancy noted. 2. Unless there is more urgent need, screening mammography is recommended, as per [place] [employer] guidelines. BI-RADS Category 1 - Negative Breast Density - Category B - Scattered areas of fibroglandular density Breast density category C or D implies that the patient has dense breast tissue. Dense breast tissue is very common and is not abnormal but dense breast tissue can make it harder to find cancer on a ma mmogram. Also, dense breast tissue may increase their breast cancer risk. This information about the result of the mammogram report was provided to the patient to raise their awareness. Use this report when you speak with the patient about their risks for breast cancer, which includes their family hist ory. At that time, you may recommend for more screening tests (Ultrasound or MRI) as they might be us eful based on their risk. A negative radiographic report should not delay biopsy if a dominant or clinically suspicious mass is present. Up to ten percent of cancers are not identified on mammography. A negative report may reinforce clinical impression. Adenosis and dense breasts may obscure an underlying neoplasm. False positive reports average 6 to 10%. Patient will receive a letter notifying them of these results.
== END ==
PROVIDERS: PCP Nurse Practitioner; Visit Provider Nurse Practitioner
DX: Z12.31 Encounter for screening mammogram for malignant neoplasm of breast (principal)
CPT/HCPCS: 77063; 77067

== ENCOUNTER 2021-12-30 01:27 | Outpatient (CLI) | payer OTHER, SELFPAY ==
[2021-12-30 07:37] LABS: HCT 41.7 % (36.0-46.0); HGB 13.9 g/dL (11.2-15.7); MCH 29.8 pg (27.0-33.0); MCHC 33.3 % (32.0-36.0); MCV 90 fL (80-95); MPV 9.3 fL (8.0-11.0); Platelet Count 259 10^3/uL (130-400); RBC 4.66 10^6/uL (3.93-5.22); RDW 14.3 % (11.7-14.6); WBC 9.94 10^3/uL (4.4-10.8)
[2021-12-30 07:44] LABS: Hemoglobin A1C 6.8 % (<5.7)
[2021-12-30 08:14] LABS: ALT 83 U/L (14-59); AST 43 U/L (15-37); Albumin 3.6 g/dL (3.4-5.0); Alkaline Phosphatase 66 U/L (46-116); Anion Gap 7.8 mmol/L (3-11); BUN 11 mg/dL (7-18); Bilirubin, Total 0.5 mg/dL (0.2-1.0); CO2 29.2 mmol/L (21.0-32.0); CREATININE 0.9 mg/dL (0.55-1.02); Calcium 8.7 mg/dL (8.5-10.1); Calculated LDL 164 mg/dL (<100); Chloride 103 mmol/L (98-107); Cholesterol 240 mg/dL (<200); Estimated GFR 76.92 (mL/min/1.73m2); Glucose 203 mg/dL (74-106); HDL Cholesterol 35 mg/dL (40-60); Potassium 4.5 mmol/L (3.5-5.1); Sodium 140 mmol/L (136-145); Total Protein 7.7 g/dL (6.4-8.2); Triglyceride 208 mg/dL (<150)
[2022-01-02 10:55] LABS: Varicella IgG Antibody Positive (See Note)
== END 2021-12-30 01:28 | disposition home or self-care (01) ==
LOC: LBO 01:27
PROVIDERS: PCP Nurse Practitioner; Visit Provider Nurse Practitioner
DX: E78.5 Hyperlipidemia, unspecified (principal); E11.9 Type 2 diabetes mellitus without complications; E66.9 Obesity, unspecified; Z11.59 Encounter for screening for other viral diseases
CPT/HCPCS: 36415; 80053; 80061; 85027; 86787; 83036

== ENCOUNTER 2022-02-27 01:43 | Outpatient (CLI) | payer OTHER, SELFPAY ==
--- NOTE | 2022-02-27 11:34 | DI.RAD_ITS ---
Exam(s) XR CHEST 2V PA LATERAL EXAM: XR CHEST 2V PA LATERAL CLINICAL HISTORY: persistent cough, wheeze,r05.9,r06.2. TECHNIQUE: 2D digital imaging was performed. COMPARISON: No exams were available for comparison FINDINGS: 2 views: Heart size is normal. The mediastinum is not widened. Lungs are clear. No infiltrates nor pleural effusions. IMPRESSION: No acute pulmonary findings. DATA REPOSITORY: RADIATION DOSE DELIVERED:
== END 2022-02-27 02:03 ==
LOC: DI 01:43
PROVIDERS: PCP Nurse Practitioner; Visit Provider Nurse Practitioner
DX: R05.9 Cough, unspecified (principal); R06.2 Wheezing
CPT/HCPCS: 71046

== ENCOUNTER 2022-03-07 02:33 | Outpatient (CLI) | payer OTHER, SELFPAY ==
--- NOTE | 2022-03-07 08:00 | ETT_ITS ---
APPROVED REPORT Exam: Exercise Treadmill Patient Location: Out-Patient Room/Bed: Stress Nurse: Tana Flor RN Ordering Provider:RADHA BASS, Contact Number: [phone] BMI: 53.24 Baseline Rhythm: Sinus Rhythm Indications: DYSPNEA ON EXERTION, HYPERTENSION, DIABETES, HYPERLIPIDEMIA Medical History Medical History: DM II, HLD, HTN, Obesity, Asthma, Anxiety, GERD Cardiac Medications: Atorvastatin, Omeprazole, Semaglutide, Hydrochlorothiazide, Albuterol Sulfate Allergies: No known drug allergies Cardiac Risk Factors: HTN, Hyperlipidemia, Diabetes (non-insulin), FHX of CAD, Asthma, Obesity Previous Cardiac Procedures: None Pretest Chest Pain Characteristics: No chest pain Exercise History: Indeterminate Physical Disabilities: None Lung Sounds: Clear to auscultation Heart Sounds: Regular Stress Test Details Test: Exercise stress testing was performed using a Aashish protocol. Rest Stress HR Resting HR Supine: 66 bpm Max Heart Rate (APMHR): 168 bpm Resting HR Standin bpm Target HR (85% APMHR): 142 bpm Max HR Achieved: 150 bpm % of APMHR: 89 Recovery HR: 88 bpm HR response to stress: Normal HR response to stress BP Resting BP Supine: 165/102 mmHg Resting BP Standin/102 mmHg Max BP: 224/56 mmHg Recovery BP: 182/102 mmHg BP response to stress: Abnormal hypertensive response to stress. Comment: Hypertensive at baseline. Recently started on HCTZ. ECG Resting ECG: Sinus Rhythm Ectopy: None Stress ECG: Sinus Tachycardia ST Change: No significant ST segment changes noted Arrhythmia: PACs Recovery ECG: Sinus Rhythm Recovery ST Change: No significant ST segment changes noted Recovery Arrhythmia: PACs Clinical Reason for Termination: Fatigue Stress Symptoms: Dyspnea, Leg Fatigue Exercise duration: 5 min33 sec Highest Stage Reached: Stage 2: 2.5 mph at 12% grade. Exercise capacity: 7.05 METs Quinones Treadmill Score: 5.8 Rate Pressure Product: [id number] Stress ECG Conclusion 1. Resting electrocardiogram showed right axis deviation and poor R wave progression 2. Patient exercised on the Aashish protocol and completed a workload of 7.05 METS 3. Resting hypertension. Hypertensive blood pressure response to exercise. Normal heart rate respon se. The patient achieved 89% of predicted heart rate for age 4. There was no electrocardiographic evidence of myocardial ischemia 5. There were no significant dysrhythmias Quinones Treadmill Score is 5.8 which is Low risk. Stress Test Summary STAGE Time (mins) Speed (mph) Grade (%) HR BP SpO2 SYMPTOMS METS Supine 66 165/102 Standing 76 152/102 97 1 3 1.7 10 125 172/92 97 4.5 2 6 2.5 12 96 7 1 min recovery 130 3 min recovery 104 6 min recovery 94 224/56 98 9 min recovery 88 182/102
== END 2022-03-07 02:53 ==
LOC: DI 02:36
PROVIDERS: PCP Nurse Practitioner; Visit Provider Nurse Practitioner
DX: E11.9 Type 2 diabetes mellitus without complications (principal); E66.9 Obesity, unspecified; E78.5 Hyperlipidemia, unspecified; I10 Essential (primary) hypertension; R06.09 Other forms of dyspnea
CPT/HCPCS: 93017

== ENCOUNTER 2022-12-13 07:53 | Day surgery (SDC) | payer OTHER, SELFPAY ==
[2022-12-13 08:07] VITALS: BP 153/82; PULSE 65; RESP 16; TEMP 36.2; O2SAT 99
--- NOTE | 2022-12-13 08:24 | W.SURGCON ---
Date of service: 12/13/22 Time of Service: 08:24 Assessment and Plan Assessment and plan (1) Colon cancer screening: Status: Acute Assessment and plan: Colonoscopy History of Present Illness Narrative: 52-year-old woman is here for colonoscopy. This is for screening purposes. There is no family history of colon cancer. She is not having any symptoms of concern. Surgical history includes PFSH All Active Problems (Updated 12/13/22 @ 08:26 by Daniel Richardson MD) Colon cancer screening (Acute) Primary hypertension (Acute) Diabetes type 2, controlled (Acute) Psoriasis (Chronic) Hyperlipidemia (Acute) Gastritis and duodenitis (Acute) Duodenitis (Acute) Gastritis and duodenitis (Acute) Esophagitis determined by biopsy (Acute) Dysphagia (Acute) Retained intrauterine device (IUD) during (Acute 12/31/13) Snoring (Acute 04/10/17) Rupture of left Achilles tendon (Acute 09/14/15) Obesity (Acute 03/25/13) Neck mass (Acute 09/14/15) Lichen sclerosus (Acute 03/13/17) IUD surveillance (Acute 12/11/13) Essential hypertension (Acute 04/10/14) Asthma (Acute 02/24/14) Anxiety (Acute 03/25/13) Medical History Anxiety Asthma Depression GERD (gastroesophageal reflux disease) Hypertension Obesity Rosacea Surgical History section H/O esophagogastroduodenoscopy (~01/17/18) Family History Mother Afib Maternal Grandmother Diabetes Crohn's colitis Maternal Cousin Crohn's colitis Social History Smoking/Tobacco Use Status: Never Smoking risk assessment performed?: Yes Alcohol Intake: current Alcohol Intake frequency: a few times a week Details: drinks 2-3 times per week, 3-4 drinks Drug use: Never Substance use type: does not use Household members: spouse Housing: house Number of Children: 1 Communication Needs: None current occupation: works at bank What is your relationship status?: How often do you talk on the phone with friends or family?: three or more times per week How often do you get together with friends or relatives?: three or more times per week Panel score (0-1 are the most socially isolated patients): 2 Do you feel safe at home: Yes Do you feel safe in your relationship?: Yes Exam Narrative Exam Narrative: General: Nontoxic, comfortable and interactive Neuro: Alert and oriented x3 Psych: Good mood and affect, good insight and understanding Chest: Nonlabored breathing Heart: Regular Results Last Vital Signs Temp 97.2 F L 12/13/22 08:07 Pulse 65 12/13/22 08:07 Resp 16 12/13/22 08:07 BP 153/82 H 12/13/22 08:07 Pulse Ox 99 12/13/22 08:07
[2022-12-13] MEDS: Lactated Ringers 1,000 ML 80 ML IV (08:25)
--- NOTE | 2022-12-13 08:27 | W.COLOREPORT ---
Date of service: 12/13/22 Time of Service: 08:27 Colonoscopy Report Procedure Description: Procedures performed: 1. Colonoscopy 2. Snare polypectomy x2 Preoperative diagnosis: Screening colonoscopy Postoperative diagnosis: Colon polyps Surgeon: Garry Richardson Anesthesia: Rosamaria Indication for procedure: 52-year-old woman due for screening colonoscopy. No symptoms. No family history of colon cancer. Findings: In the sigmoid colon, 2 separate polyps were removed. One was 3-5 mm in size and the other was 5?7 mm in size. They were both sessile and removed with hot snare technique. No diverticuli. No significant hemorrhoidal disease. Surveillance/follow-up recommendations: 3-10 years. If sessile serrated or villous histology than 3 years. If simple adenomas or hyperplastic by chance, then 7-10 years. Complications: None Blood loss: Minimal Prep: Excellent Specimens:? None Procedure in detail: Written consent was obtained from the patient who was in agreement with the risks, benefits and indications of the procedure.? We went to the endoscopy suite and laid the patient in left lateral decubitus position.? Anesthesia was administered which was tolerated well.? A timeout was performed and when we are all in agreement we began the procedure. Digital rectal exam and visual examination was performed and within normal limits.? A well?lubricated colonoscope was advanced without difficulty all the way to the cecum identified by the ileocecal valve, and triangular folds and appendiceal orifice.?? It was then slowly withdrawn.?? Retroflexion was performed in the rectum.? The findings/interventions are noted above. The scope was then removed and the patient tolerated the procedure well and was then taken back to the PACU in hemodynamically stable condition.
--- NOTE | 2022-12-13 08:27 | W.PM.DSUDISC ---
Date of service: 12/13/22 Time of Service: 08:27 Discharge Plan Disposition Patient Disposition: Home Condition: Good Discharge Details Attending Provider: Daniel Richardson Primary Care Provider: Breanna Silver Home Meds and New Rx's Prescriptions: No Action atorvastatin 40 mg tablet 40 mg PO QHS Qty: 90 3RF semaglutide 2 mg/dose (8 mg/3 mL) pen injector 2 mg subcut QWEEK Qty: 3 5RF bisacodyl [Dulcolax (bisacodyl)] 5 mg tablet,delayed release (DR/EC) 5 mg PO ONCE Qty: 4 0RF Rx Instructions: Take per colonoscopy instructions provided by ordering providers office polyethylene glycol 3350 17 gram/dose powder 17 g PO ONCE Qty: 238 0RF Rx Instructions: Take per colonoscopy instructions provided by ordering providers office albuterol sulfate 90 mcg/actuation aerosol powdr breath activated 2 inh inhalation Q4H PRN (Reason: shortness of breath or wheezing) Qty: 1 12RF omeprazole 20 mg capsule,delayed release(DR/EC) 20 mg PO HS hydrochlorothiazide 25 mg tablet 25 mg PO HS metformin 500 mg tablet extended release 24 hr 1,000 mg PO HS Discharge Instructions Additional Instructions: FINDINGS:2 small colon polyps were found and removed today. This is why we do the colonoscopies. They get sent to pathology for review. After type of polyp and being will dictate when your next colonoscopy should be done, probably in 7 to 10 years. Stand Alone Forms: Colonoscopy Post Instructions Activity:: Activity as Tolerated Diet:: As Tolerated DS: Diagnosis Discharge Diagnosis (1) Colon cancer screening: Status: Acute Asessment and Plan: FINDINGS: 2 small colon polyps were found and removed today. This is why we do the colonoscopies. They get sent to pathology for review. After type of polyp and being will dictate when your next colonoscopy should be done, probably in 7 to 10 years.
--- NOTE | 2022-12-13 08:43 | W.ANESPRE ---
General Info Date of Service Date Performed: 12/13/22 Height: 5 ft 5 in Weight: 123.2 kg Body Mass Index (BMI): 45.1 Surgical Procedure: Operation Date: 12/13/22 09:05 Proposed Procedure Side Surgeon p Tracey Richardson MD Meds Allergies and Home Medications Allergies Allergy/AdvReac Type Severity Reaction Status Date / Time No Known Drug Allergies Allergy Verified 12/13/22 08:04 Home Medication Medication Instructions Recorded atorvastatin 40 mg tablet 40 mg PO QHS #90 tabs 01/16/22 albuterol sulfate 90 mcg/actuation 2 inh inhalation Q4H PRN shortness 02/15/22 breath activated powder inhaler of breath or wheezing #1 ea semaglutide 2 mg/dose (8 mg/3 mL) 2 mg (0.75 mL) subcut QWEEK #3 mL 09/13/22 subcutaneous pen injector bisacodyl 5 mg tablet,delayed 5 mg PO ONCE #4 tabs 10/26/22 release (Dulcolax (bisacodyl)) polyethylene glycol 3350 17 17 g PO ONCE #238 grams 10/26/22 gram/dose oral powder hydrochlorothiazide 25 mg tablet 25 mg PO HS 12/12/22 metformin 500 mg tablet,extended 1,000 mg PO HS 12/12/22 release 24 hr omeprazole 20 mg capsule,delayed 20 mg PO HS 12/12/22 release Current Visit Medications: Current Medications Generic Name Dose Route Start Last Admin Trade Name Freq PRN Reason Stop Dose Admin Ringer's Solution 1,000 mls @ 80 mls/hr 12/13/22 06:00 12/13/22 08:25 IV 12/13/22 23:59 80 mls/hr INFUSION NAHOMI Administration IV Miscellaneous Supplies 1 each 12/13/22 06:00 Iv Access IV 12/13/22 23:59 DIRECTED NAHOMI Sodium Chloride 0 ml 12/13/22 06:00 Normal Saline Flush 10 Ml Syr IV 12/13/22 23:59 PRN PRN Sodium Chloride 0 ml 12/13/22 06:00 Normal Saline 10 Ml Vial IJ 12/13/22 23:59 DIRECTED PRN Sterile Water 0 ml 12/13/22 06:00 Water,Injection,Sterile 10 Ml Vial IJ 12/13/22 23:59 DIRECTED PRN PFSH Active Problems Active Problems: Problem Status Onset Code Colon cancer screening Z12.11 Primary hypertension I10 Diabetes type 2, controlled E11.9 Psoriasis L40.9 Hyperlipidemia E78.5 Gastritis and duodenitis K29.90 Duodenitis K29.80 Gastritis and duodenitis K29.90 Esophagitis determined by biopsy K20.9 Dysphagia R13.10 Retained intrauterine device (IUD) during 12/31/13 O26.30 Snoring 04/10/17 R06.83 Rupture of left Achilles tendon 09/14/15 S86.012A Obesity 03/25/13 E66.9 Neck mass 09/14/15 R22.1 Lichen sclerosus 03/13/17 L90.0 IUD surveillance 12/11/13 Z30.431 Essential hypertension 04/10/14 I10 Asthma 02/24/14 J45.909 Anxiety 03/25/13 F41.9 Medical History Medical History Anxiety Asthma Depression GERD (gastroesophageal reflux disease) Hypertension Obesity Rosacea Surgical History Surgical History section H/O esophagogastroduodenoscopy (~01/17/18) Tobacco Smoking/Tobacco Use Status: Never Passive smoking exposure: Yes Alcohol Alcohol Intake: current Alcohol intake frequency: a few times a week Details: drinks 2-3 times per week, 3-4 drinks Substance Use Substance use: Never Substance use type: does not use Vital Signs and Lab Results Vital Signs Most Recent Vital Signs in EMR: Most Recent Vital Signs Temp Pulse Resp BP Pulse Ox 36.2 C L 65 16 153/82 H 99 12/13/22 08:07 12/13/22 08:07 12/13/22 08:07 12/13/22 08:07 12/13/22 08:07 Point of Care Results Point of Care Results: POC- Test(urine) Negative 12/13/22 08:05 Finger Stick Blood Glucose 128 12/13/22 07:57 Lab Results Blood Type / Crossmatch: No Data to Display Complete Blood Count: No Data to Display Complete Metabolic Panel: No Data to Display Liver Function Panel: No Data to Display Coagulation Panel: No Data to Display Cardiac Panel: No Data to Display Arterial Blood Gas: No Data to Display Venous Blood Gas: No Data to Display Pancreas Panel: No Data to Display Thyroid Panel: No Data to Display Infectious Disease: No Data to Display Blood Cultures: No Data to Display Toxicology Panel: No Data to Display Panel: No Data to Display Anesthesia Assessment and Plan Anesthesia History Personal History: No History of Anesthesia Complications Family History: No Family History of Anesthesia Complications Exercise Tolerance Exercise Tolerance: Metabolic Equivalents>4 Pertinent Negatives Pertinent Negatives: No Symptoms of GERD and No Major Cardiovascular Symptoms or Complaints Cardiac & Pulmonary Exam Cardiac Exam: Normal S1/S2 Heart Sounds Pulmonary Exam: Clear Bilateral Breath Sounds Implantable Cardiac Device Does patient have a Pacemaker or an ICD?: No Airway Exam Known Difficult Airway: No Mallampati Class: 2 Mouth Opening: Normal (> 3cm) Thyromental Distance: Greater than 3 cm Neck Range of Motion: Full ROM Neck Circumference: Thick Teeth Condition: Normal Dentition ASA Classification ASA Score: ASA 3 Emergency Case?: No NPO Status NPO Status: NPO Clears >2 hours, Solids >8 hours Status Status: Negative HCG Anesthesia Plan Resuscitation Status: Full Code Anesthesia Technique: General Anesthesia Airway Planned: Natural Airway Monitors Used: Standard Monitors
[2022-12-13 08:46] VITALS: BMI 45.1
--- NOTE | 2022-12-13 09:40 | BOWEL_PTH ---
PATIENT: Loertta Arce LOC: [facility] U#:[id number] AGE/SX: 52/F ROOM: RE12/13/[address]: Daniel Richardson : 1970 BED: DIS: 12/13/2022 SPEC #: [id number] RECD: 12/13/22 13:03 STATUS: NITIN [facility] #: [id number] ROXIE: 12/13/22 09:[address]: Daniel Richardson DEPT: Surgical Specimen RECD BY: Caity David ENTERED: 12/13/22 13:04 SP TYPE: Bowel OTHR DR: Breanna Silver APRN Tissues: 1 - BIOPSY BOWEL 2 - BIOPSY BOWEL Procedures: GROSS AND MICRO LEVEL 4 Comments: [id number]
[2022-12-13 09:53] VITALS: BP 121/61; PULSE 54; RESP 16; TEMP 36.2; O2SAT 96
[2022-12-13 10:20] VITALS: BP 150/72; PULSE 55; RESP 16; TEMP 36.2; O2SAT 98
--- NOTE | 2022-12-13 10:46 | W.ANESPOSTOP ---
Postoperative Evaluation Date, Time and Location Date Performed: 12/13/22 Time Performed: 10:46 Patient Location: Day Surgery Unit Vital Signs Most Recent Imported Vital Signs: Most Recent Vital Signs Temp Pulse Resp BP Pulse Ox 36.2 C L 55 L 16 150/72 H 98 12/13/22 10:20 12/13/22 10:20 12/13/22 10:20 12/13/22 10:20 12/13/22 10:20 Pain Score Most Recent Pain Score: Most Recent Pain Score Pain Level 0 12/13/22 09:53 Assessment Mental Status: Awake (Alert & Oriented to Patient Baseline) Airway and Respiratory Function: Patent airway with normal (patient baseline) respiratory exam Cardiovascular Function: Hemodynamically Stable Hydration Status: Adequately Hydrated Nausea & Vomiting: No Nausea or Vomiting Pain: Pt. Denies Any Pain Peripheral Nerve Block: Patient did not receive a nerve block
== END 2022-12-13 10:40 | disposition home or self-care (01) ==
PROVIDERS: PCP Nurse Practitioner; Visit Provider Student in an Organized Health Care Education/Training Program
PROC: 0DJD8ZZ Inspection of Lower Intestinal Tract, Via Natural or Artificial Opening Endoscopic (ICD-10-PCS; CPT 45378; principal; 2022-12-13 09:00)
DX: Z12.11 Encounter for screening for malignant neoplasm of colon (principal); D12.5 Benign neoplasm of sigmoid colon
CPT/HCPCS: 45385; 81025; 88305; J2405

== ENCOUNTER → 2023-03-19 01:40 | Outpatient (CLI) | payer OTHER, SELFPAY ==
--- NOTE | 2023-03-19 07:30 | DI.MAMMO_ITS ---
Exam(s) MAMMO SCREENING EXAM: MAMMO SCREENING CLINICAL HISTORY: screening,z12.39 TECHNIQUE: Bilateral full field digital CC and MLO mammographic images were obtained with 3D tomosyn thesis and utilizing computer aided detection (CAD). COMPARISON: Available for comparison. FINDINGS: Masses/Architectural Distortion: There is a 7.7 mm nodule in the retroareolar region of the right angelito ast. No area of architectural distortion is seen. Microcalcifications: No suspicious pleomorphic-type are seen. Skin Thickening/Nipple Retraction: None. IMPRESSION: 1. 7.7 mm nodule in the right breast retroareolar region. 2. This area should be further evaluated with a spot compression view. Limited right breast ultrasou nd is recommended at that time. BI-RADS Category 0 - Assessment Incomplete: Need additional imaging evaluation Breast Density - Category B - Scattered areas of fibroglandular density Breast density category C or D implies that the patient has dense breast tissue. Dense breast tissue is very common and is not abnormal but dense breast tissue can make it harder to find cancer on a ma mmogram. Also, dense breast tissue may increase their breast cancer risk. This information about the result of the mammogram report was provided to the patient to raise their awareness. Use this report when you speak with the patient about their risks for breast cancer, which includes their family hist ory. At that time, you may recommend for more screening tests (Ultrasound or MRI) as they might be us eful based on their risk. A negative radiographic report should not delay biopsy if a dominant or clinically suspicious mass is present. Up to ten percent of cancers are not identified on mammography. A negative report may reinforce clinical impression. Adenosis and dense breasts may obscure an underlying neoplasm. False positive reports average 6 to 10%. Patient will receive a letter notifying them of these results.
== END ==
PROVIDERS: PCP Nurse Practitioner; Visit Provider Nurse Practitioner
DX: Z12.31 Encounter for screening mammogram for malignant neoplasm of breast (principal); N63.41 Unspecified lump in right breast, subareolar
CPT/HCPCS: 77063; 77067

== ENCOUNTER 2023-03-19 20:27 | Outpatient (CLI) | payer OTHER, SELFPAY ==
[2023-03-19 07:46] LABS: ALT 43 U/L (14-59); AST 23 U/L (15-37); Albumin 3.7 g/dL (3.4-5.0); Alkaline Phosphatase 72 U/L (46-116); BUN 9 mg/dL (7-18); Bilirubin, Total 0.6 mg/dL (0.2-1.0); CREATININE 1.1 mg/dL (0.55-1.02); Calcium 9.1 mg/dL (8.5-10.1); Calculated LDL 99 mg/dL (<100); Chloride 101 mmol/L (98-107); Cholesterol 183 mg/dL (<200); Estimated GFR 60.08 (mL/min/1.73m2); Glucose 133 mg/dL (74-106); HDL Cholesterol 40 mg/dL (40-60); Potassium 3.8 mmol/L (3.5-5.1); Sodium 140 mmol/L (136-145); Total Protein 7.8 g/dL (6.4-8.2); Triglyceride 224 mg/dL (<150)
== END 2023-03-19 20:28 | disposition home or self-care (01) ==
LOC: LBO 20:27
PROVIDERS: PCP Nurse Practitioner; Visit Provider Nurse Practitioner
DX: E11.9 Type 2 diabetes mellitus without complications (principal); E78.5 Hyperlipidemia, unspecified; I10 Essential (primary) hypertension
CPT/HCPCS: 36415; 80053; 80061

== ENCOUNTER → 2023-03-23 00:43 | Outpatient (CLI) | payer OTHER, SELFPAY ==
--- NOTE | 2023-03-23 | DI.US_ITS ---
Exam(s) MG MAMMO SCREEN CALL BACK UNI US BREAST RT LIMITED EXAM: MG MAMMO SCREEN CALL BACK UNI and U/S breast RT limited CLINICAL HISTORY: F/U MAMMO, RT BREAST NODULE,R92.8. TECHNIQUE: Craniocaudal and mediolateral oblique Full Field Digital Mammography views of the right b reast with Computer Aided Diagnosis followed by Tomosynthesis and right breast ultrasound. COMPARISON: Comparison is made with prior examinations. FINDINGS: Mammography/Tomosynthesis: Masses/Architectural Distortion: There is a persistent partially obscured ovoid area of nodularity in the outer retroareolar region of the right breast. No areas of architectural distortion are seen. Microcalcifictions: No suspicious pleomorphic-type are seen. Skin Thickening/Nipple Retraction: None. Limited right breast US: Echotexture: Normal appearance of the glandular tissue. Shadowing: No suspicious foci. Cyst: There is a 0.3 cm cyst at the 12 o'clock position of the right breast 3 cm from the nipple. Solid lesions: There is an area at 8 o'clock 1 cm from the nipple which appears represent fibroglandu lar tissue during video imaging. Video clips were obtained of this area. No persistent suspicious s olid lesions are seen sonographically. Ductal dilation: None. IMPRESSION: 1. No evidence of malignancy is noted. 2. A 3 month follow-up mammogram is recommended for re-evaluation. Ultrasound may be indicated at th at time. 3. The findings were discussed with the patient on the date of the examination. BI-RADS Category 3 - Probably Benign Finding: Recommend follow-up imaging in 3 months Breast Density - Category B - Scattered areas of fibroglandular density Breast density Category C or D implies that the patient has dense breast tissue. Dense breast tissue can make it harder to find cancer on a mammogram. Dense breast tissue is also associated with an incr eased risk of breast cancer. This information about the result of the mammogram report was provided to the patient to raise their awareness. Use this report when you speak with the patient about their risks for breast cancer, which includes their family history. At that time, you may recommend additional screening tests (Ultrasoun d or MRI) as these tests may add significant information. A negative radiographic report should not delay biopsy if a dominant or clinically suspicious mass is present. Up to ten percent of cancers are not identified on mammography. A negative report may reinforce clinical impression. Adenosis and dense breasts may obscure an underlying neoplasm. False positive reports average 6 to 10%. Patient will receive a letter notifying them of these results.
== END ==
PROVIDERS: PCP Nurse Practitioner; Visit Provider Nurse Practitioner
DX: Z12.31 Encounter for screening mammogram for malignant neoplasm of breast (principal)
CPT/HCPCS: 76642; 77063; 77067

== ENCOUNTER → 2023-07-10 02:48 | Outpatient (CLI) | payer OTHER, SELFPAY ==
--- NOTE | 2023-07-10 07:30 | DI.US_ITS ---
Exam(s) MG MAMMO DIAGNOSTIC UNI US BREAST RT LIMITED EXAM: MG MAMMO DIAGNOSTIC UNI and U/S breast RT limited CLINICAL HISTORY: 3 MO F/U ABNL ON RT,RT NODULARITY,R92.8. TECHNIQUE: Craniocaudal and mediolateral oblique Full Field Digital Mammography views of the right b reast with Computer Aided Diagnosis followed by Tomosynthesis and right breast ultrasound. COMPARISON: Comparison is made with prior examinations. FINDINGS: Mammography/Tomosynthesis: Masses/Architectural Distortion: There has been no change in size of the well-circumscribed nodule in the retroareolar region of the right breast. No new nodules are seen. No areas of architectural di stortion are present. Microcalcifictions: No suspicious pleomorphic-type are seen. Skin Thickening/Nipple Retraction: None. Limited right breast US: Echotexture: Normal appearance of the glandular tissue. Shadowing: No suspicious foci. Cyst: The cystic lesion seen at the 12 o'clock position of the right breast 3 cm from the nipple is u nchanged. Solid lesions: There is persistent glandular tissue at the 8 o'clock position 1 cm from the nipple. This is unchanged compared to the prior examination. No suspicious masses are seen sonographically. Ductal dilation: None. IMPRESSION: 1. No evidence of malignancy is noted. 2. A 3 month follow-up right mammogram and ultrasound are requested for re-evaluation. 3. The findings were discussed with the patient on the date of the examination. BI-RADS Category 3 - Probably Benign Finding: Recommend follow-up imaging in 3 months Breast Density - Category B - Scattered areas of fibroglandular density Breast density Category C or D implies that the patient has dense breast tissue. Dense breast tissue can make it harder to find cancer on a mammogram. Dense breast tissue is also associated with an incr eased risk of breast cancer. This information about the result of the mammogram report was provided to the patient to raise their awareness. Use this report when you speak with the patient about their risks for breast cancer, which includes their family history. At that time, you may recommend additional screening tests (Ultrasoun d or MRI) as these tests may add significant information. A negative radiographic report should not delay biopsy if a dominant or clinically suspicious mass is present. Up to ten percent of cancers are not identified on mammography. A negative report may reinforce clinical impression. Adenosis and dense breasts may obscure an underlying neoplasm. False positive reports average 6 to 10%. Patient will receive a letter notifying them of these results.
== END ==
PROVIDERS: PCP Nurse Practitioner; Visit Provider Nurse Practitioner
DX: R92.8 Other abnormal and inconclusive findings on diagnostic imaging of breast (principal)
CPT/HCPCS: 76642; 77061; 77065; G0279

== ENCOUNTER 2023-09-24 14:41 | Outpatient (REF) | payer OTHER, SELFPAY ==
--- NOTE | 2023-09-24 14:30 | PAPFT_PTH ---
PATIENT: Loretta Arce LOC: [facility] U#:[id number] AGE/SX: 53/F ROOM: RE09/24/[address]: Karla Crouch DO : 1970 BED: DIS: 09/24/2023 SPEC #: [id number] RECD: 09/24/23 17:16 STATUS: NITIN REQ #: [id number] ROXIE: 09/24/23 14:[address]: Karla Crouch DEPT: [facility] Cytology RECD BY: Caity David ENTERED: 09/24/23 17:17 SP TYPE: PAPFT SARAH DR: Breanna Silver APRN Tissues: 1 - CX/ENDOCX FOR PAP SMEARS Procedures: PAP THIN PREP/UVM Screening HPV DNA PROBE Comments: [id number]
== END 2023-09-24 14:42 | disposition home or self-care (01) ==
LOC: LBN 14:41
PROVIDERS: PCP Nurse Practitioner; Visit Provider Obstetrics & Gynecology
DX: Z11.51 Encounter for screening for human papillomavirus (HPV) (principal); Z01.419 Encounter for gynecological examination (general) (routine) without abnormal findings
CPT/HCPCS: 88142; 87624

== ENCOUNTER → 2023-10-19 00:43 | Outpatient (CLI) | payer OTHER, SELFPAY ==
--- NOTE | 2023-10-19 08:00 | DI.US_ITS ---
Exam(s) MG MAMMO DIAGNOSTIC UNI US BREAST RT LIMITED EXAM: MG MAMMO DIAGNOSTIC UNI and U/S breast RT limited CLINICAL HISTORY: abnormal right mammo,f/u rt abnl,cystic lesion,r92.8. TECHNIQUE: Craniocaudal and mediolateral oblique Full Field Digital Mammography views of the right b reast with Computer Aided Diagnosis followed by Tomosynthesis and right breast ultrasound. COMPARISON: Comparison is made with prior examinations. FINDINGS: Mammography/Tomosynthesis: Masses/Architectural Distortion: The well-circumscribed right retroareolar region nodule is unchanged . No new nodules or areas of architectural distortion are present. Microcalcifictions: No suspicious pleomorphic-type are seen. Skin Thickening/Nipple Retraction: None. Limited right breast US: Echotexture: Normal appearance of the glandular tissue. Shadowing: No suspicious foci. Cyst: The cyst at the 12 o'clock position of the right breast 3 cm from the nipple is unchanged and m easures 0.4 cm. Solid lesions: At the 8 o'clock position 1 cm from the nipple, the fibroglandular tissue appears unch anged. Ductal dilation: None. IMPRESSION: 1. No evidence of malignancy is noted. 2. A six-month follow-up right mammogram and ultrasound are requested. This is to document stability of the fibroglandular tissue in the 8 o'clock position of the right breast. 3. The findings were discussed with the patient on the date of the examination. BI-RADS Category 3 - 6 month - Probably Benign Finding: Recommend follow-up imaging in 6 months Breast Density - Category B - Scattered areas of fibroglandular density Breast density Category C or D implies that the patient has dense breast tissue. Dense breast tissue can make it harder to find cancer on a mammogram. Dense breast tissue is also associated with an incr eased risk of breast cancer. This information about the result of the mammogram report was provided to the patient to raise their awareness. Use this report when you speak with the patient about their risks for breast cancer, which includes their family history. At that time, you may recommend additional screening tests (Ultrasoun d or MRI) as these tests may add significant information. A negative radiographic report should not delay biopsy if a dominant or clinically suspicious mass is present. Up to ten percent of cancers are not identified on mammography. A negative report may reinforce clinical impression. Adenosis and dense breasts may obscure an underlying neoplasm. False positive reports average 6 to 10%. Patient will receive a letter notifying them of these results.
== END ==
PROVIDERS: PCP Nurse Practitioner; Visit Provider Nurse Practitioner
DX: R92.8 Other abnormal and inconclusive findings on diagnostic imaging of breast (principal)
CPT/HCPCS: 76642; 77061; 77065; G0279

== ENCOUNTER → 2023-10-31 00:16 | Outpatient (CLI) | payer OTHER, SELFPAY ==
--- NOTE | 2023-10-31 13:57 | DI.RAD_ITS ---
Exam(s) XR CERVICAL SPINE COMP 4-5V EXAM: XR CERVICAL SPINE COMP 4-5V CLINICAL HISTORY: chronic left neck pain with movement,m54.2. TECHNIQUE: 2D digital imaging was performed. Five views were performed. COMPARISON: No exams were available for comparison FINDINGS: BONES: No fracture or destructive lesion. Vertebral bodies are unremarkable. Minimal facet degenera tive changes. DISKS: Intervertebral disc spaces are maintained. Minimal endplate osteophytes. ALIGNMENT: Cervical spinal alignment is within normal limits. The odontoid and atlantoaxial articulat ions are normal. SOFT TISSUE: Normal. The lung apices are clear. IMPRESSION: Minimal degenerative changes. DATA REPOSITORY: RADIATION DOSE DELIVERED:
== END ==
PROVIDERS: PCP Nurse Practitioner; Visit Provider Nurse Practitioner
DX: M54.2 Cervicalgia (principal)
CPT/HCPCS: 72050

== ENCOUNTER 2023-11-21 02:28 | Outpatient (CLI) | payer OTHER, SELFPAY ==
[2023-11-21 08:22] LABS: Abs Immature Grans 0.02 10^3/uL (0.0-0.06); Absolute Basophil Count 0.05 10^3/uL (0.0-0.2); Absolute Eosinophil Count 0.25 10^3/uL (0.0-0.7); Absolute Lymphocyte Count 1.63 10^3/uL (1.2-3.4); Absolute Monocyte Count 0.42 10^3/uL (0.1-0.8); Absolute Neutrophil Count 4.57 10^3/uL (1.2-6.7); Basophils % 0.7 %; Eosinophils % 3.6 %; HCT 43.2 % (36.0-46.0); Immature Grans % 0.3 %; Lymphocytes % 23.5 %; MCH 29.6 pg (27.0-33.0); MCHC 32.4 % (32.0-36.0); MCV 91 fL (80-95); MPV 9.1 fL (8.0-11.0); Monocytes % 6.1 %; Neutrophils % 65.8 %; Platelet Count 273 10^3/uL (130-400); RBC 4.73 10^6/uL (3.93-5.22); RDW 13.7 % (11.7-14.6); RDW-SD 45.9 fL; WBC 6.94 10^3/uL (4.4-10.8)
[2023-11-21 08:48] LABS: ALT 33 U/L (14-59); AST 17 U/L (15-37); Albumin 3.6 g/dL (3.4-5.0); Alkaline Phosphatase 70 U/L (46-116); Anion Gap 7.3 mmol/L (3-11); BUN 9 mg/dL (7-18); Bilirubin, Total 0.45 mg/dL (0.2-1.0); CO2 30.7 mmol/L (21.0-32.0); CREATININE 1.1 mg/dL (0.55-1.02); Calcium 9.4 mg/dL (8.5-10.1); Calculated LDL 170 mg/dL (<100); Chloride 105 mmol/L (98-107); Cholesterol 242 mg/dL (<200); Estimated GFR 59.71 (mL/min/1.73m2); Glucose 136 mg/dL (74-106); HDL Cholesterol 43 mg/dL (40-60); Sodium 143 mmol/L (136-145); Total Protein 7.5 g/dL (6.4-8.2); Triglyceride 145 mg/dL (<150)
== END 2023-11-21 02:29 | disposition home or self-care (01) ==
LOC: LBO 02:28
PROVIDERS: PCP Nurse Practitioner; Visit Provider Obstetrics & Gynecology
DX: Z01.818 Encounter for other preprocedural examination (principal); E11.9 Type 2 diabetes mellitus without complications; E78.5 Hyperlipidemia, unspecified
CPT/HCPCS: 36415; 80053; 80061; 86850; 86900; 86901; 85025

== ENCOUNTER 2023-11-22 06:09 | Day surgery (SDC) | payer OTHER, SELFPAY ==
--- NOTE | 2023-11-22 06:27 | ANES.PREOP_ITS ---
General Info Date of Service Date Performed: 11/22/23 Height: 5 ft 5 in Weight: 124.001 kg Body Mass Index (BMI): 45.5 Surgical Procedure: Operation Date: 11/22/23 07:40 Proposed Procedure Side Surgeon p Removal of IUD Karla Crouch DO s Possible Hysteroscopy Karla Crouch DO Meds Allergies and Home Medications Allergies Allergy/AdvReac Type Severity Reaction Status Date / Time No Known Drug Allergies Allergy Other (See Verified 11/22/23 06:28 Comment) Home Medication ?Medication ?Instructions ?Recorded omeprazole 20 mg capsule,delayed 20 mg PO HS #90 caps 03/26/23 release hydrochlorothiazide 25 mg tablet 25 mg PO HS #90 tabs 04/10/23 metformin 500 mg tablet,extended 1,000 mg (2 x 500 mg) PO HS #180 04/10/23 release 24 hr tabs semaglutide 2 mg/dose (8 mg/3 mL) 2 mg (0.75 mL) subcut QWEEK #3 mL 07/31/23 subcutaneous pen injector (Ozempic) atorvastatin 40 mg tablet 40 mg PO QHS #90 tabs 10/24/23 Current Visit Medications: Current Medications Generic Name Dose Route Start Last Admin Trade Name Freq PRN Reason Stop Dose Admin Sodium Chloride 1,000 mls @ 125 mls/hr 11/22/23 06:00 Saline 1000ml Bag IV 12/22/23 05:59 INFUSION NAHOMI IV Miscellaneous Supplies 1 each 11/22/23 06:00 Iv Access IV 12/21/23 23:59 DIRECTED NAHOMI Sodium Chloride 0 ml 11/22/23 06:00 Normal Saline Flush 10 Ml Syr IV 12/21/23 23:59 PRN PRN Sodium Chloride 0 ml 11/22/23 06:00 Normal Saline 10 Ml Vial IJ 12/21/23 23:59 DIRECTED PRN Sterile Water 0 ml 11/22/23 06:00 Water,Injection,Sterile 10 Ml Vial IJ 12/21/23 23:59 DIRECTED PRN PFSH Active Problems Active Problems: Problem Status Onset Code IUD strings lost Acute T83.32XA Colon cancer screening Acute Z12.11 Primary hypertension Acute I10 Diabetes type 2, controlled Acute E11.9 Psoriasis Chronic L40.9 Hyperlipidemia Acute E78.5 Gastritis and duodenitis Acute K29.90 Duodenitis Acute K29.80 Gastritis and duodenitis Acute K29.90 Esophagitis determined by biopsy Acute K20.9 Dysphagia Acute R13.10 Snoring Acute 04/10/17 R06.83 Rupture of left Achilles tendon Acute 09/14/15 S86.012A Obesity Acute 03/25/13 E66.9 Neck mass Acute 09/14/15 R22.1 Lichen sclerosus Acute 03/13/17 L90.0 Essential hypertension Acute 04/10/14 I10 Asthma Acute 02/24/14 J45.909 Anxiety Acute 03/25/13 F41.9 Medical History Medical History Retained intrauterine device (IUD) during (12/31/13) Depression Anxiety Obesity Rosacea Asthma GERD (gastroesophageal reflux disease) Hypertension Surgical History Surgical History History of colonoscopy (~11/2022) H/O esophagogastroduodenoscopy (~01/17/18) section Tobacco Smoking/Tobacco Use Status: Never Passive smoking exposure: No Alcohol Alcohol Intake: current Alcohol intake frequency: a few times a week Details: drinks 2-3 times per week, 3-4 drinks Substance Use Substance use: Never Substance use type: does not use Vital Signs and Lab Results Lab Results Blood Type / Crossmatch: Antibody Screen NEGATIVE 11/21/23 Complete Blood Count: White Blood Count 6.94 10^3/uL (4.4-10.8) 11/21/23 08:15 Red Blood Count 4.73 10^6/uL (3.93-5.22) 11/21/23 08:15 Hemoglobin 14.0 g/dL (11.2-15.7) 11/21/23 08:15 Hematocrit 43.2 % (36.0-46.0) 11/21/23 08:15 Platelet Count 273 10^3/uL (130-400) 11/21/23 08:15 Complete Metabolic Panel: Sodium 143 mmol/L (136-145) 11/21/23 08:15 Potassium 4.0 mmol/L (3.5-5.1) 11/21/23 08:15 Chloride 105 mmol/L (98-107) 11/21/23 08:15 Carbon Dioxide 30.7 mmol/L (21.0-32.0) 11/21/23 08:15 BUN 9 mg/dL (7-18) 11/21/23 08:15 Creatinine 1.1 mg/dL (0.55-1.02) H 11/21/23 08:15 Est GFR (CKD-EPI 2020) 59.71 (mL/min/1.73m2) 11/21/23 08:15 Calcium 9.4 mg/dL (8.5-10.1) 11/21/23 08:15 Albumin 3.6 g/dL (3.4-5.0) 11/21/23 08:15 Glucose 136 mg/dL (74-106) H 11/21/23 08:15 Hemoglobin A1c 5.6 % (4.5-5.7) 10/24/23 14:22 Liver Function Panel: Alanine Aminotransferase (ALT/SGPT) 33 U/L (14-59) 11/21/23 08: 15 Aspartate Amino Transf (AST/SGOT) 17 U/L (15-37) 11/21/23 08:15 Coagulation Panel: No Data to Display Cardiac Panel: No Data to Display Arterial Blood Gas: No Data to Display Venous Blood Gas: No Data to Display Pancreas Panel: No Data to Display Thyroid Panel: No Data to Display Infectious Disease: No Data to Display Blood Cultures: No Data to Display Toxicology Panel: No Data to Display Panel: No Data to Display Imaging and Studies Imaging and Studies Study information below may be from another EMR and interpreted by another provider. Please see original notes in EMR for more complete details. Stress Test Summary: 03/14: ECG with right axis deviation. 7 METS. no evidence of ischemia. Anesthesia Assessment and Plan Anesthesia History Personal History: No History of Anesthesia Complications Family History: No Family History of Anesthesia Complications Exercise Tolerance Exercise Tolerance: Metabolic Equivalents>4 Cardiac & Pulmonary Exam Cardiac Exam: Normal S1/S2 Heart Sounds Pulmonary Exam: Clear Bilateral Breath Sounds Implantable Cardiac Device Does patient have a Pacemaker or an ICD?: No Airway Exam Known Difficult Airway: No Mallampati Class: 2 Mouth Opening: Normal (> 3cm) Thyromental Distance: Greater than 3 cm Neck Range of Motion: Full ROM Neck Circumference: Thick Teeth Condition: Normal Dentition ASA Classification ASA Score: ASA 3 Emergency Case?: No NPO Status NPO Status: NPO Clears >2 hours, Solids >8 hours Status Status: Negative HCG Anesthesia Plan Resuscitation Status: Full Code Anesthesia Technique: General Anesthesia Airway Planned: Natural Airway Monitors Used: Standard Monitors Preoperative Comments:: 53 yo female for IUD removal. Sig PMHx: HTN (HCTZ), asthma (no inhaler use, from a long time ago), depression/anxiety, BMI >40, DM2 (semaglutide, metformin), never smoker, occ EtOH. Previous Anes: - colo, prop, natural airway, no issues - EGD, prop, topical lido, no issues.
[2023-11-22 06:29] VITALS: BP 156/82; PULSE 61; RESP 16; TEMP 36.2; O2SAT 97
[2023-11-22 06:35] VITALS: BMI 45.5
[2023-11-22] MEDS: Normal Saline 1,000 ML 125 ML IV (06:45)
[2023-11-22 08:01] VITALS: BP 100/51; PULSE 68; RESP 18; TEMP 36; O2SAT 96
--- NOTE | 2023-11-22 08:05 | W.PM.OP ---
Date of service: 11/22/23 Time of Service: 08:05 Operative Note Operative Note DATE OF PROCEDURE: 11/22/23 PRE-OP DIAGNOSIS: Retained IUD, strings not visualized POST-OP DIAGNOSIS: same PROCEDURE: Removal of IUD SURGEON: Karla Crouch ANESTHESIA TYPE: MAC Refer to Anesthesia Record ESTIMATED BLOOD LOSS: 1 PATHOLOGY: none sent COMPLICATIONS: None Patient was transported to: same day Patient's condition: stable Indications: Retained IUD, strings not visualized Findings: Removal of IUD in toto Procedure Description: Patient taken the operating suite with IV running where she is placed in the supine position. She had anesthesia administered and placed in the modified dorsolithotomy position in [facility]. Speculum inserted into the vaginal vault and cervical os cleansed with Betadine. Single-tooth tenaculum was used to grasp the anterior and posterior lip of the cervix and cervical os dilated slightly. A Hari stone polyp forcep was placed through the cervical canal and the IUD grasped and gentle downward traction used to remove the IUD in toto. Tenaculum was removed from the anterior and posterior lip of the cervix and puncture sites were hemostatic. Speculum was removed and the patient was returned to the dorsal supine position and awoke from anesthesia without difficulty. She was taken to the same-day surgical area in stable condition.
[2023-11-22 08:30] VITALS: BP 109/77; PULSE 58; RESP 18; TEMP 36.2; O2SAT 96
--- NOTE | 2023-11-22 08:36 | W.ANESPOSTOP ---
Postoperative Evaluation Date, Time and Location Date Performed: 11/22/23 Time Performed: 08:36 Patient Location: Day Surgery Unit Vital Signs Most Recent Imported Vital Signs: Most Recent Vital Signs Temp Pulse Resp BP Pulse Ox 36.2 C L 58 L 18 109/77 96 11/22/23 08:30 11/22/23 08:30 11/22/23 08:30 11/22/23 08:30 11/22/23 08:30 Pain Score Most Recent Pain Score: Most Recent Pain Score Pain Level 0 11/22/23 08:01 Assessment Mental Status: Awake (Alert & Oriented to Patient Baseline) Airway and Respiratory Function: Patent airway with normal (patient baseline) respiratory exam Cardiovascular Function: Hemodynamically Stable Hydration Status: Adequately Hydrated Nausea & Vomiting: No Nausea or Vomiting Pain: Pain is tolerable per patient Peripheral Nerve Block: Patient did not receive a nerve block
== END 2023-11-22 08:50 | disposition home or self-care (01) ==
PROVIDERS: PCP Nurse Practitioner; Visit Provider Obstetrics & Gynecology
PROC: (CPT 58301; principal; 2023-11-22 07:30)
DX: T83.32XA Displacement of intrauterine contraceptive device, initial encounter (principal); E11.9 Type 2 diabetes mellitus without complications; E66.9 Obesity, unspecified
CPT/HCPCS: 58301; J1885; J2001; J2405; J2704

== ENCOUNTER 2024-07-11 00:12 | Outpatient (CLI) | payer OTHER, SELFPAY ==
--- NOTE | 2024-07-11 06:59 | DI.US_ITS ---
Exam(s) MG MAMMO DIAGNOSTIC UNI US BREAST RT LIMITED EXAM: MG MAMMO DIAGNOSTIC UNI CLINICAL HISTORY: 6 MO F/U, F/U ABNL MAMMO,R92.8,RT BREAST CYST,ABNORMALITY. COMPARISON: Mammograms from 2017 through 19 October 2023. Right breast ultrasounds from 2022 in 2023. TECHNIQUE: Craniocaudal and mediolateral oblique Full Field Digital Mammography views of right breas t with Computer Aided Diagnosis followed by Tomosynthesis and right breast ultrasound. FINDINGS: Mammography/Tomosynthesis: Masses: Decreased size of nodule seen in the subareolar region. Architectural Distortion: None seen. Microcalcifications: No suspicious pleomorphic-type are seen. Skin Thickening/Nipple Retraction: None. Right breast US: Echotexture: Normal appearance of the glandular tissue. Shadowing: No suspicious foci. Cyst: Stable 4 millimeter cyst at the 12 o'clock position 3 cm from the nipple. Solid lesions: Decreased size of previously noted nodule at the 8 o'clock position 1 cm from the nip ple, now measuring 4 x 7 x 6 millimeters compared with 6 x 5 x 9 millimeters. It has the appearance of an intramammary lymph node. Ductal dilation: None. IMPRESSION: 1. No evidence of malignancy is noted. 2. Bilateral screening mammography is recommended. The patient is due for screening of the left j[address] at this time which has not been performed since 2022. 3. The findings were discussed with the patient after completion of the exam. BI-RADS Category 2 - Benign Findings Breast Density - Category B - Scattered areas of fibroglandular density A negative radiographic report should not delay biopsy if a dominant or clinically suspicious mass is present. Up to ten percent of cancers are not identified on mammography. A negative report may reinforce clinical impression. Adenosis and dense breasts may obscure an underlying neoplasm. False positive reports average 6 to 10%. Patient will receive a letter notifying them of these results. Additional imaging needed
== END 2024-07-11 00:32 ==
LOC: DI 00:12
PROVIDERS: PCP Nurse Practitioner; Visit Provider Nurse Practitioner
DX: Z12.31 Encounter for screening mammogram for malignant neoplasm of breast (principal); N63.13 Unspecified lump in the right breast, lower outer quadrant
CPT/HCPCS: 76642; 77061; 77065; G0279

== ENCOUNTER 2025-04-15 00:31 | Outpatient (CLI) | payer OTHER, SELFPAY ==
[2025-04-15 08:39] LABS: ALT 21 U/L (10-49); AST 20 U/L (<34); Albumin 4.5 g/dL (3.2-5.0); Alkaline Phosphatase 68 U/L (46-116); Anion Gap 10.1 mmol/L (3-11); BUN 8 mg/dL (9-23); Bilirubin, Total 0.7 mg/dL (0.2-1.2); CO2 25.9 mmol/L (20.0-31.0); Calcium 9.2 mg/dL (8.3-10.6); Chloride 106 mmol/L (98-107); Cholesterol 235 mg/dL (<200); Glucose 116 mg/dL (74-106); HDL Cholesterol 39 mg/dL (>or=50); Potassium 3.8 mmol/L (3.5-5.1); Sodium 142 mmol/L (136-145); Total Protein 7.6 g/dL (5.7-8.2)
== END 2025-04-15 00:32 | disposition home or self-care (01) ==
LOC: LBO 00:31
DX: I10 Essential (primary) hypertension (principal); E78.5 Hyperlipidemia, unspecified; E11.9 Type 2 diabetes mellitus without complications; E66.9 Obesity, unspecified
CPT/HCPCS: 36415; 80053; 80061